=== PATIENT | male | born 1990 | race Caucasian/White ===

== ENCOUNTER → 2020-10-15 | Outpatient (CLI) | payer OTHER ==
--- NOTE | 2020-10-15 11:48 | REP ---
INDICATION: TERESA WRIST PAIN. COMPARISON: None. TECHNIQUE: Multiple sequences of left wrist obtained in the axial, coronal and sagittal planes. FINDINGS: Triangular fibrocartilage complex:No evidence of tear. Scapholunate and lunatotriquetral ligaments: Intact. Flexor and extensor tendons: Intact. No tenosynovitis. Carpal tunnel region: No significant abnormality. No abnormal signal in median nerve. No ganglion cyst is seen. Joint fluid: No effusion. Distal radioulnar joint: There is mild fluid present. Bone marrow: No edema or occult fracture. IMPRESSION: Mild fluid in the distal radioulnar joint. Otherwise, essentially negative MRI left wrist. <Electronically signed by Femi Funk > 10/15/20 [id number]
--- NOTE | 2020-10-15 16:02 | REP ---
INDICATION: TERESA WRIST PAIN. COMPARISON: None. TECHNIQUE: Multiple sequences right wrist obtained in the axial, coronal and sagittal planes. FINDINGS: Triangular fibrocartilage complex:No evidence of tear. Scapholunate and lunatotriquetral ligaments: Intact. Flexor and extensor tendons: Intact. No tenosynovitis. Carpal tunnel region: No significant abnormality. No abnormal signal in median nerve. No ganglion cyst is seen. Joint fluid: No effusion. Distal radioulnar joint: No significant fluid present. Bone marrow: No edema or occult fracture. IMPRESSION: Essentially negative MRI right wrist. <Electronically signed by Femi Funk > 10/15/20 [id number]
== END ==
LOC: M RAD 09:40
PROVIDERS: ATTEND Emergency Medicine
DX: M25.531 Pain in right wrist (principal); M25.532 Pain in left wrist; M25.432 Effusion, left wrist